=== PATIENT | female | born 1990 | race Caucasian/White ===

== ENCOUNTER 2024-02-11 23:30 | Emergency (ER) | payer OTHER ==
[~2024-02-11] VITALS: Ht 160 cm; Wt 75.7 kg
[2024-02-11 23:45] VITALS: BP 111/77; PULSE 84; RESP 16; TEMP 97.9; O2SAT 100
[2024-02-12 01:01] LABS: BASOPHILS % (AUTO) 0.5 % (0.0-2.0); EOSINOPHILS # (AUTO) 0.1 K/uL (0-0.4); EOSINOPHILS % (AUTO) 1.7 % (0.0-4.0); HEMATOCRIT 37.2 % (36-48); HEMOGLOBIN 12.9 g/dL (12.0-16.0); LYMPHOCYTES # (AUTO) 2.6 K/uL (2.5-16.5); LYMPHOCYTES % (AUTO) 36.1 % (20.5-51.1); MEAN CORPUSCULAR HEMOGLOBIN 30 pg (27-31); MEAN CORPUSCULAR HGB CONC 35 g/dL (33-37); MEAN CORPUSCULAR VOLUME 85.4 fL (80-94); MONOCYTES # (AUTO) 0.5 K/uL (0.8-1.0); NEUTROPHILS % (AUTO) 54.7 % (42.2-75.2); PLATELET COUNT (AUTO) 244 K/uL (140-450); RED BLOOD CELL COUNT(AUTO) 4.36 MIL/uL (4.20-5.40); RED CELL DISTRIBUTION WIDTH 14.8 % (11.6-13.7); WHITE BLOOD COUNT (AUTO) 7.2 K/uL (4.8-10.8)
[2024-02-12 01:04] LABS: ANION GAP 12.9 (8-16); CALCIUM 8.3 mg/dL (8.5-10.1); CARBON DIOXIDE 27.7 mmol/L (21-32); CREATININE 0.7 mg/dL (0.6-1.3); POTASSIUM 3.6 mmol/L (3.5-5.1)
[2024-02-12 01:04] LABS: APPEARANCE,URINE CLEAR (CLEAR); BILIRUBIN,URINE NEGATIVE (NEGATIVE); BLOOD, URINE 3+ (NEGATIVE); COLOR,URINE YELLOW (YELLOW); LEUKOCYTE ESTERASE ,URINE NEGATIVE (NEGATIVE); NITRITE, URINE NEGATIVE (NEGATIVE); PROTEIN,URINE NEGATIVE (NEGATIVE); UGLUCOSE NEGATIVE (NEGATIVE)
[2024-02-12 01:08] LABS: BACTERIA,URINE 10-30 (MOD) /HPF (None Seen); RBC,URINE 11-20 (MOD) /HPF (0-5); SQUAMOUS EPITHELIAL CELL,UR 0-3 (FEW) /LPF (0-3 (FEW)); WBC,URINE 0-5 /HPF (0-5)
[2024-02-12 01:09] LABS: MUCUS,URINE 1+ /LPF (None Seen)
[2024-02-12 01:13] LABS: ALBUMIN 3.6 g/dL (3.4-5.0); BILIRUBIN,DIRECT 0.1 mg/dL (0.0-0.3); TOTAL BILIRUBIN 0.2 mg/dL (0.0-1.0); TOTAL PROTEIN, SERUM 7.6 g/dL (6.4-8.2)
[2024-02-12] MEDS ORDERED: CEPH-588 PO (06:03)
[2024-02-12 06:15] VITALS: BP 122/77; PULSE 82; RESP 14; TEMP 98; O2SAT 100
== END 2024-02-12 06:15 | disposition home or self-care (01) ==
LOC: MED 23:30
DX: O03.9 Complete or unspecified spontaneous abortion without complication (principal); O99.891 Other specified diseases and conditions complicating pregnancy; R82.71 Bacteriuria; Z3A.00 Weeks of gestation of pregnancy not specified
CPT/HCPCS: 36415; 76817; 80048; 80076; 81001; 81025; 83690; 84702; 85025; 86886; 86900; 86901; 87086; 99284